=== PATIENT | female | born 1990 | race Caucasian/White ===

== ENCOUNTER 2022-05-16 16:09 | Emergency (ER) | payer MEDICAID ==
[2022-05-16] MEDS ORDERED: Sodium Chloride 0.9% 1,000 ML IV ONE (16:32)
[2022-05-16] MEDS ORDERED: Ondansetron 4 MG in Sodium Chloride 0.9% 50 ML IV ONE (16:32)
[2022-05-16] MEDS ORDERED: Ketorolac 30 MG/ML SDV IVPUSH ONE (16:35)
[2022-05-16 16:37] VITALS: BP 124/78; PULSE 114
[2022-05-16 17:00] LABS: ANION GAP 13.1 mEq/L (7-13); CHLORIDE,CL 102 mmol/L (98-107); SODIUM,NA 138 mmol/L (136-145)
[2022-05-16 17:04] LABS: ESTIMATED GFR 95 mL/min (>=60)
[2022-05-16] MEDS ORDERED: Iopamidol 612 MG/ML 100 ML Bottle IVPUSH ONE (17:06)
[2022-05-16] MEDS ORDERED: metroNIDAZOLE/Normal Saline 500 MG in Premix Bag 100 BAG IV ONE (17:50)
[2022-05-16] MEDS ORDERED: Potassium Chloride 10 MEQ Tab.ER PO ONE (18:00)
== END 2022-05-16 18:08 | disposition home or self-care (01) ==
LOC: DL.ED 16:09
DX: R11.2 Nausea with vomiting, unspecified (principal); R19.7 Diarrhea, unspecified; Z86.16 Personal history of COVID-19
CPT/HCPCS: 36415; 74177; 80053; 81001; 83605; 84703; 85025; 87040; 96365; 96375; 99283; 99284-25; A9270-GY; J1885; J2405; J7030; Q9967

== ENCOUNTER 2023-06-12 18:23 | Emergency (ER) | payer MEDICAID ==
[2023-06-12 19:02] LABS: APPEARANCE,URINE CLEAR (CLEAR); BILIRUBIN,URINE NEGATIVE (NEGATIVE); COLOR,URINE DARK YELLOW (YELLOW); GLUCOSE,URINE NEGATIVE (NEGATIVE); KETONES,URINE NEGATIVE (NEGATIVE); LEUKOCYTE ESTERASE,URINE NEGATIVE (NEGATIVE); NITRITE,URINE NEGATIVE (NEGATIVE); OCCULT BLOOD,URINE LARGE (NEGATIVE); PH,URINE 7.5 (5.0-9.0); PROTEIN,URINE 30 (NEGATIVE)
[2023-06-12 19:10] LABS: AMORPHOUS SEDIMENT,URINE FEW /HPF (NOT SEEN); BACTERIA,URINE FEW /HPF (0-FEW/HPF); EPITHELIAL CELLS,URINE FEW /HPF (NOT SEEN); MUCUS,URINE MODERATE /LPF (NOT SEEN); RBC,URINE 20-30 /HPF (0-5); WBC,URINE 0-5 /HPF (0-5/HPF)
[2023-06-12 19:37] LABS: BASOPHILS PERCENT AUTO 0.7 % (0.0-1.0); EOSINOPHILS PERCENT AUTO 1.6 % (1.0-3.0); HEMATOCRIT 38.1 % (37.0-47.0); HEMOGLOBIN 12.4 g/dL (12.0-16.0); LYMPHOCYTES PERCENT AUTO 27.5 % (20.5-50.1); MEAN CORPUSCULAR HEMOGLOBIN 31.2 pg (27.0-34.0); MEAN CORPUSCULAR HGB CONC 32.5 g/dL (33.0-35.0); MEAN CORPUSCULAR VOLUME 95.7 fL (80-100); NEUTROPHILS PERCENT AUTO 55.2 % (42.2-75.2); PLATELET COUNT,PLT 243 10^3/uL (150-450); RED BLOOD CELL COUNT 3.98 10^6/uL (4.2-5.4); WHITE BLOOD CELL COUNT,WBC 6.1 10^3/uL (5.0-10.0)
[2023-06-12] MEDS: Sodium Chloride 0.9% 10 ML Syringe FLUSH PRN (19:44)
[2023-06-12] MEDS: Metoclopramide 10 MG/2 ML SDV IVPUSH ONE (19:44)
[2023-06-12 19:55] LABS: ALANINE AMINOTRANSFERASE,ALT 826 U/L (14-59); ALBUMIN 3.6 g/dL (3.4-5.0); ALKALINE PHOSPHATASE 157 U/L (46-116); ANION GAP 12.2 mEq/L (7-13); ASPARTATE AMNIOTRANSFERASE,AST 652 U/L (15-37); BILIRUBIN TOTAL 0.4 mg/dL (0.2-1.0); BLOOD UREA NITROGEN,BUN 25 mg/dL (7-18); BUN/CREATININE RATIO 34.2 (No establ ref range); C-REACTIVE PROTEIN < 0.50 ng/dL (<=0.50); CALCIUM 7.8 mg/dL (8.5-10.1); CARBON DIOXIDE,CO2 27 mmol/L (21-32); CHLORIDE,CL 107 mmol/L (98-107); CREATININE 0.73 mg/dL (0.55-1.02); EST CRCL DRUG DOSING (CG) 82.71 mL/min; ESTIMATED GFR 111 mL/min (>=60); GLUCOSE RANDOM 76 mg/dL (70-99); POTASSIUM,K 4.2 mmol/L (3.5-5.1); PROTEIN TOTAL,TP 7.2 g/dL (6.4-8.2); SODIUM,NA 142 mmol/L (136-145)
[2023-06-12 19:58] LABS: LACTIC ACID 1.7 mmol/L (0.4-2.0)
[2023-06-12 20:28] VITALS: BP 135/87; PULSE 77
== END 2023-06-12 20:32 | disposition home or self-care (01) ==
LOC: DL.ED 18:23
DX: K59.00 Constipation, unspecified (principal); R16.0 Hepatomegaly, not elsewhere classified; R94.5 Abnormal results of liver function studies; Z88.6 Allergy status to analgesic agent; Z91.048 Other nonmedicinal substance allergy status; Z88.5 Allergy status to narcotic agent; Z86.16 Personal history of COVID-19; Z79.899 Other long term (current) drug therapy
CPT/HCPCS: 36415; 74019; 80053; 81001; 81025; 83605; 85025; 86140; 96374; 99284-25; J2765; J3490

== ENCOUNTER 2024-09-10 06:59 | Day surgery (SDC) | payer MEDICAID ==
[2024-09-10] MEDS: Lactated Ringers 1,000 ML IV SCH (07:43)
[2024-09-10] MEDS ORDERED: Propofol 200 MG/20 ML SDV ONE (08:42)
[2024-09-10 09:44] VITALS: BP 132/84; PULSE 81
== END 2024-09-10 09:51 | disposition home or self-care (01) ==
LOC: DL.ENDO 06:59
PROVIDERS: ATTEND Internal Medicine Gastroenterology
DX: K64.4 Residual hemorrhoidal skin tags (principal); Z88.6 Allergy status to analgesic agent; Z88.5 Allergy status to narcotic agent; Z91.09 Other allergy status, other than to drugs and biological substances
CPT/HCPCS: 45378; J7120

== ENCOUNTER 2024-09-17 06:26 | Day surgery (SDC) | payer MEDICAID ==
[~2024-09-17 06:26] MED LIST: Propofol 200 MG/20 ML SDV ONE
[2024-09-17] MEDS ORDERED: Lactated Ringers 1,000 ML IV ONE (06:27)
[2024-09-17] MEDS ORDERED: Propofol 200 MG/20 ML SDV IV ONE (06:27)
[2024-09-17] MEDS: Lactated Ringers 1,000 ML IV SCH (06:57)
[2024-09-17 10:00] VITALS: BP 116/72; PULSE 84
== END 2024-09-17 09:35 | disposition home or self-care (01) ==
LOC: DL.ENDO 06:26
PROVIDERS: ATTEND Internal Medicine Gastroenterology
DX: K29.50 Unspecified chronic gastritis without bleeding (principal); K20.0 Eosinophilic esophagitis; K21.9 Gastro-esophageal reflux disease without esophagitis; E66.09 Other obesity due to excess calories; F41.1 Generalized anxiety disorder; Z68.37 Body mass index [BMI] 37.0-37.9, adult; Z88.6 Allergy status to analgesic agent; Z88.5 Allergy status to narcotic agent; Z88.8 Allergy status to other drugs, medicaments and biological substances; Z79.899 Other long term (current) drug therapy
CPT/HCPCS: 43239; J2003; J2704; J7120

== ENCOUNTER 2025-01-09 10:35 | Emergency (ER) | payer MEDICAID ==
[2025-01-09] MEDS ORDERED: Sodium Chloride 0.9% 10 ML Syringe FLUSH PRN (11:13)
[2025-01-09 11:32] LABS: BASOPHILS PERCENT AUTO 0.3 % (0.0-1.0); EOSINOPHILS PERCENT AUTO 3.5 % (1.0-3.0); LYMPHOCYTES PERCENT AUTO 5.2 % (20.5-50.1); MONOCYTES PERCENT AUTO 12.7 % (2-8); NEUTROPHILS PERCENT AUTO 78.3 % (42.2-75.2); PLATELET COUNT,PLT 277 10^3/uL (150-450); RED BLOOD CELL COUNT 4.23 10^6/uL (4.2-5.4); WHITE BLOOD CELL COUNT,WBC 13.3 10^3/uL (5.0-10.0)
[2025-01-09 12:03] LABS: A/G RATIO 0.8; ALANINE AMINOTRANSFERASE,ALT 45 U/L (14-59); ASPARTATE AMNIOTRANSFERASE,AST 21 U/L (15-37); BILIRUBIN TOTAL 0.3 mg/dL (0.2-1.0); BLOOD UREA NITROGEN,BUN 13 mg/dL (7-18); CARBON DIOXIDE,CO2 23 mmol/L (21-32); CHLORIDE,CL 105 mmol/L (98-107); CREATININE 0.69 mg/dL (0.55-1.02); EST CRCL DRUG DOSING (CG) 90.00 mL/min; GLUCOSE RANDOM 109 mg/dL (70-99); POTASSIUM,K 3.7 mmol/L (3.5-5.1); PROTEIN TOTAL,TP 8.2 g/dL (6.4-8.2); SODIUM,NA 139 mmol/L (136-145)
[2025-01-09 12:05] LABS: ESTIMATED GFR 116 mL/min (>=60)
[2025-01-09 12:08] LABS: APPEARANCE,URINE CLEAR (CLEAR); GLUCOSE,URINE NEGATIVE (NEGATIVE); OCCULT BLOOD,URINE NEGATIVE (NEGATIVE)
[2025-01-09 12:22] LABS: EPITHELIAL CELLS,URINE MANY /HPF (NOT SEEN)
[2025-01-09] MEDS: Take Home: Doxycycline 100 MG Cap, 4 Cap Pack PO ONE (12:23)
[2025-01-09] MEDS: Dexamethasone 4 MG/ML SDV IVPUSH ONE (12:23)
[2025-01-09 12:55] VITALS: BP 125/76; PULSE 108
== END 2025-01-09 12:51 | disposition home or self-care (01) ==
LOC: DL.ED 10:35
DX: J20.9 Acute bronchitis, unspecified (principal); E86.0 Dehydration; Z91.048 Other nonmedicinal substance allergy status; Z88.8 Allergy status to other drugs, medicaments and biological substances; Z88.5 Allergy status to narcotic agent; Z79.899 Other long term (current) drug therapy; Z86.16 Personal history of COVID-19; Z90.49 Acquired absence of other specified parts of digestive tract
CPT/HCPCS: 71045; 80053; 81001; 84484; 85025; 85379; 87428; 93005; 94640; 96361; 96374; 99285; A9270; J1100; J7040; J7620; 93010; 99283

== ENCOUNTER 2025-01-24 11:04 | Emergency (ER) | payer MEDICAID ==
[2025-01-24] MEDS ORDERED: Bacitracin Oint 1 GM U/D Packet ONE (12:33)
[2025-01-24] MEDS ORDERED: Lidocaine 2% Viscous Solution 15 ML UD PO ONE (12:44)
[2025-01-24] MEDS: Lidocaine 2% Viscous Solution 15 ML UD ONE (12:45)
[2025-01-24] MEDS: Bacitracin Oint 1 GM U/D Packet TOP ONE (12:46)
[2025-01-24 12:54] VITALS: BP 124/61; PULSE 98
== END 2025-01-24 12:49 | disposition home or self-care (01) ==
LOC: DL.ED 11:04
DX: T21.47XA Corrosion of unspecified degree of female genital region, initial encounter (principal); F17.200 Nicotine dependence, unspecified, uncomplicated; Z88.5 Allergy status to narcotic agent; Z88.8 Allergy status to other drugs, medicaments and biological substances; Z79.899 Other long term (current) drug therapy; Z86.16 Personal history of COVID-19; Z90.49 Acquired absence of other specified parts of digestive tract
CPT/HCPCS: 99282; 99283; A9270-GY